=== PATIENT | male | born 1975 | race Caucasian/White ===

== ENCOUNTER 2022-08-23 09:47 | Emergency (ER) | payer OTHER ==
[~2022-08-23] VITALS: Ht 180.3 cm; Wt 86.2 kg
[~2022-08-23 09:47] MED LIST: CEPH500 PO; ESOM20 PO; HYDACE5 PO; HYDCHL12.5 PO; IBUP600 PO; LOSA50 PO; NAPR500 PO; Norco 5-325 Ta1 EACH PO; RANI150 PO
== END 2022-08-23 11:35 | disposition home or self-care (01) ==
LOC: ER 09:47
DX: S20.211A Contusion of right front wall of thorax, initial encounter (principal); W01.198A Fall on same level from slipping, tripping and stumbling with subsequent striking against other object, initial encounter; I10 Essential (primary) hypertension; F17.210 Nicotine dependence, cigarettes, uncomplicated; Z79.899 Other long term (current) drug therapy
CPT/HCPCS: 71046